=== PATIENT | male | born 1995 | race Caucasian/White ===

== ENCOUNTER 2023-07-01 17:54 | Emergency (ER) | payer MEDICAID ==
[~2023-07-01] VITALS: Ht 175.3 cm; Wt 135.0 kg
[2023-07-01 18:05] VITALS: TEMP 98.1; O2SAT 97
[2023-07-01] MEDS ORDERED: IBUPROFEN 600MG TABLET PO ONE (18:30)
[2023-07-01 18:39] LABS: CLARITY URINE CLEAR (CLEAR); COLOR URINE YELLOW (YELLOW); GLUCOSE URINE NEGATIVE (NEGATIVE); KETONES URINE NEGATIVE (NEGATIVE); LEUKOCYTE ESTERASE URINE NEGATIVE (NEGATIVE); NITRITE URINE NEGATIVE (NEGATIVE); OCCULT BLOOD URINE NEGATIVE (NEGATIVE); PROTEIN URINE NEGATIVE (NEGATIVE); SPECIFIC GRAVITY URINE 1.021 (1.005-1.030); UROBILINOGEN URINE 0.2 E.U./dL (0.2-1.0)
[2023-07-01] MEDS ORDERED: IBUP-2028 MT (20:06)
[2023-07-01 20:46] VITALS: BP 124/82; PULSE 87; RESP 17
== END 2023-07-01 20:48 | disposition home or self-care (01) ==
LOC: ER 17:54
DX: N50.3 Cyst of epididymis (principal)
CPT/HCPCS: 76770; 76870; 81003; 87491; 87591; 93976; 99284

== ENCOUNTER 2023-07-25 16:33 | Emergency (ER) | payer MEDICAID ==
[~2023-07-25] VITALS: Ht 175.3 cm; Wt 130.0 kg
[~2023-07-25 16:33] MED LIST: IBUP-2028 MT
[2023-07-25 16:46] VITALS: O2SAT 98
[2023-07-25] MEDS ORDERED: CIPR-263 MT (18:33)
[2023-07-25] MEDS ORDERED: HYDR-4001 MT (18:33)
[2023-07-25 18:42] VITALS: BP 131/78; PULSE 89; RESP 18; TEMP 98
== END 2023-07-25 18:43 | disposition home or self-care (01) ==
LOC: ER 16:33
DX: N50.812 Left testicular pain (principal)
CPT/HCPCS: 99283